=== PATIENT | male | born 1980 | race African-American/Black ===

== ENCOUNTER 2020-06-05 23:39 | Inpatient (IN) | payer OTHER ==
[~2020-06-05 23:39] MED LIST: ACETAMINOPHEN 325 MG TABLET (FP) PO PRN; AMMONIUM LACTATE 12% LOTION 225 GM BOTTLE TP PRN; BISMUTH SUBSALICYLATE 524 MG/30 ML UD PO PRN; BUPRENORPHINE/NALOXONE 4 MG/1 MG FILM PACKET SL ONE; IBUPROFEN 400 MG TABLET (FP) PO PRN; MAG HYDROX/AL HYDROX/SIMETH 30 ML UNIT-DOSE CUP PO PRN; MAGNESIUM CITRATE 300 ML BOTTLE PO PRN; MAGNESIUM HYDROX 2400MG/30ML ORAL SUSPENSION 30 ML CUP PO PRN; MELATONIN 5 MG TABLETS PO SCH; NICOTINE POLACRILEX 2 MG GUM BUC PRN; ONDANSETRON *ODT* 4 MG TABLET SL PRN; diazePAM 5 MG TABLET PO ONE; diazePAM 5 MG TABLET PO PRN; guaiFENesin 200 MG/10 ML 10 ML UNIT-DOSE CUPS PO PRN
[2020-06-06] MEDS: TOLNAFTATE 1% CREAM 15 GM TUBE TP SCH ×3 (00:35→22:30)
[2020-06-06] MEDS: THIAMINE HCL 100 MG TABLET (FP) PO SCH ×2 (00:35→22:17)
[2020-06-06] MEDS: diazePAM 5 MG TABLET PO SCH ×5 (00:36→22:18)
[2020-06-06] MEDS: BUPRENORPHINE/NALOXONE 4 MG/1 MG FILM PACKET SL SCH ×3 (05:36→22:29)
[2020-06-06] MEDS: NICOTINE 7 MG/24 HOURS TOPICAL PATCH TD SCH (10:24)
[2020-06-06] MEDS: PRENATAL VITAMINS W/ FOLIC ACID TABLET (FP) PO SCH (10:24)
[2020-06-06 11:55] LABS: HEMATOCRIT 41.7 % (35.4-49); HEMOGLOBIN 14.1 GM/dL (11.7-16.9); MCH 30.4 pg (25.7-33.7); MCHC 33.8 g/dl (32.0-35.9); MEAN PLT VOLUME 10.8 fl (7.5-11.1); PLATELET COUNT 164 K/MM3 (134-434); RBC 4.64 M/mm3 (4.00-5.60); RDW 13.8 % (11.9-15.9); WHITE BLOOD COUNT 7.1 K/mm3 (4.0-10.0)
[2020-06-06 12:26] LABS: ALBUMIN 3.4 g/dl (3.4-5.0); BLOOD UREA NITROGEN 16.9 mg/dL (7-18); CALCIUM 8.6 mg/dL (8.5-10.1)
[2020-06-06 12:29] LABS: CREATININE 1.1 mg/dL (0.55-1.3)
[2020-06-06 12:31] LABS: BILIRUBIN,TOTAL 0.7 mg/dL (0.2-1); TOT PROT 6.2 g/dl (6.4-8.2)
[2020-06-06] MEDS: MELATONIN 5 MG TABLETS PO PRN (22:18)
[2020-06-07] MEDS: diazePAM 5 MG TABLET PO SCH ×3 (06:55→22:24)
[2020-06-07] MEDS: BUPRENORPHINE/NALOXONE 4 MG/1 MG FILM PACKET SL SCH ×2 (06:56→22:25)
[2020-06-07] MEDS: NICOTINE 7 MG/24 HOURS TOPICAL PATCH TD SCH (09:51)
[2020-06-07] MEDS: TOLNAFTATE 1% CREAM 15 GM TUBE TP SCH ×2 (09:51→22:25)
[2020-06-07] MEDS: PRENATAL VITAMINS W/ FOLIC ACID TABLET (FP) PO SCH (09:51)
[2020-06-07] MEDS: METHOCARBAMOL 500 MG TABLET PO PRN ×2 (10:23→17:41)
[2020-06-07] MEDS ORDERED: BUPRENORPHINE/NALOXONE 2 MG/0.5 MG FILM PACKET SL ONE (14:00)
[2020-06-07 17:29] LABS: PH,URINE 6.5 (5.0-8.0); URINE APPEARANCE CLEAR; URINE BILIRUBIN NEGATIVE (NEGATIVE); URINE COLOR YELLOW; URINE GLUCOSE (UA) NEGATIVE (NEGATIVE); URINE KETONE NEGATIVE (NEGATIVE); URINE LEUK ESTERASE NEGATIVE (NEGATIVE); URINE NITRITE NEGATIVE (NEGATIVE); URINE PROTEIN NEGATIVE (NEGATIVE); URINE UROBILINOGEN 0.2 mg/dL (0.2-1.0)
[2020-06-07] MEDS: MELATONIN 5 MG TABLETS PO PRN (22:20)
[2020-06-07] MEDS: THIAMINE HCL 100 MG TABLET (FP) PO SCH (22:20)
[2020-06-08] MEDS: diazePAM 5 MG TABLET PO SCH ×2 (05:40→17:11)
[2020-06-08] MEDS: MENTHOL/PHENOL 1 EACH UD MM PRN ×2 (05:44→10:14)
[2020-06-08] MEDS ORDERED: BUPRENORPHINE/NALOXONE 4 MG/1 MG FILM PACKET SL ONE (06:00)
[2020-06-08] MEDS: NICOTINE 7 MG/24 HOURS TOPICAL PATCH TD SCH (09:26)
[2020-06-08] MEDS: TOLNAFTATE 1% CREAM 15 GM TUBE TP SCH ×2 (09:26→23:12)
[2020-06-08] MEDS: PRENATAL VITAMINS W/ FOLIC ACID TABLET (FP) PO SCH (09:27)
[2020-06-08] MEDS: METHOCARBAMOL 500 MG TABLET PO PRN ×2 (09:27→19:02)
[2020-06-08] MEDS ORDERED: BUPRENORPHINE/NALOXONE 2 MG/0.5 MG FILM PACKET SL ONE (22:00)
[2020-06-08] MEDS: THIAMINE HCL 100 MG TABLET (FP) PO SCH (23:12)
[2020-06-09] MEDS ORDERED: diazePAM 5 MG TABLET PO ONE (06:00)
[2020-06-09] MEDS: METHOCARBAMOL 500 MG TABLET PO PRN (06:35)
[2020-06-09 08:53] VITALS: BP 112/64; PULSE 73; TEMP 96.4
[2020-06-09] MEDS ORDERED: BUPRENORPHINE/NALOXONE 2 MG/0.5 MG FILM PACKET SL ONE (10:00)
[2020-06-09] MEDS ORDERED: BUPRENORPHINE/NALOXONE 2 MG/0.5 MG FILM PACKET SL SCH (10:00)
== END 2020-06-09 09:08 | disposition home or self-care (01) | DRG 773 ==
LOC: YASAS 23:39 → Y3N 23:40
PROVIDERS: ADMIT Allergy & Immunology; ATTEND Allergy & Immunology
PROC: HZ2ZZZZ Detoxification Services for Substance Abuse Treatment (ICD-10-PCS; principal; 2020-06-05)
DX: F11.23 Opioid dependence with withdrawal (principal); F13.230 Sedative, hypnotic or anxiolytic dependence with withdrawal, uncomplicated; F17.210 Nicotine dependence, cigarettes, uncomplicated; F41.9 Anxiety disorder, unspecified; J45.909 Unspecified asthma, uncomplicated; K59.00 Constipation, unspecified; L84 Corns and callosities; B35.3 Tinea pedis; M54.5 Low back pain; G89.29 Other chronic pain
CPT/HCPCS: 36415; 80053; 81003; 85027; 86780; 93005; 93010; C9803; U0003